=== PATIENT | female | born 1975 | race Caucasian/White ===

== ENCOUNTER 2017-04-01 15:49 | Emergency (ER) | payer SELFPAY ==
[~2017-04-01] VITALS: Ht 170.2 cm; Wt 64.0 kg
[2017-04-01 16:04] VITALS: BP 171/106; PULSE 98; RESP 17; TEMP 98.2; O2SAT 99
--- NOTE | 2017-04-01 16:49 | PD ---
HPI Chief Complaint: Oral / Dental Pain or Problem Time Seen by Provider: 16:45 Travel History International Travel<30 days: No Contact w/Intl Traveler<30days: No Traveled to known affect area: No History of Present Illness HPI 41-year-old female here with right upper dental pain and facial swelling 2 days. She denies fever or chills. She denies difficulty swallowing. Symptom severity is moderate. No aggravating or alleviating factors. PFSH Past Medical History Medical History: Denies Significant Hx Diminished Hearing: No Hypertension: Yes Influenza Vaccination: No ?: Not LMP: 1 WEEK AGO Social History Alcohol Use: No Tobacco Use: No Substance Use: No Allergies-Medications (Allergen,Severity, Reaction): Coded Allergies: Penicillins (Verified Allergy, Intermediate, HIVES, 04/01/17) Review of Systems Except as stated in HPI: all other systems reviewed are Neg General / Constitutional: No: Fever Physical Exam Narrative GENERAL: Alert well-appearing female. SKIN: Warm and dry. HEAD: Normocephalic. EYES: No scleral icterus. No injection or drainage. Mouth: Widespread dental decay. Right upper premolar decayed and screaming gum erythema. NECK: Supple, trachea midline. No lymphadenopathy. CARDIOVASCULAR: Regular rate and rhythm RESPIRATORY: Breath sounds equal bilaterally. No accessory muscle use. Data Data Last Documented VS Vital Signs Date Time Temp Pulse Resp B/P (MAP) Pulse Ox O2 Delivery O2 Flow Rate FiO2 04/01/17 16:04 98.2 98 17 171/106 (127) 99 MDM Medical Decision Making Medical Screen Exam Complete: Yes Emergency Medical Condition: Yes Differential Diagnosis Dental abscess, dental caries, periodontal disease. Narrative Course 41-year-old female with right upper dental pain and swelling 3 days. She has widespread dental decay and gum Erythema. Treated for dental infection. Diagnosis Primary Impression: Dental infection Referrals: Primary Care Physician Additional Instructions: Take the antibiotics as prescribed. Take [id number] Motrin 800 mg every 6 hours as needed for pain Scripts Clindamycin (Clindamycin) 300 Mg Cap 300 MG PO TID for Infection for 7 Days, CAP 0 Refills Prov: Britt Esqueda 04/01/17 Disposition: 01 DISCHARGE HOME Condition: Stable Britt Esqueda Apr 01, 2017 16:49
[2017-04-01] MEDS ORDERED: CLIN300C5 PO (16:55)
== END 2017-04-01 17:15 | disposition home or self-care (01) ==
LOC: PHEFT 15:49
DX: K04.7 Periapical abscess without sinus (principal); I10 Essential (primary) hypertension; Z88.0 Allergy status to penicillin
CPT/HCPCS: 99283

== ENCOUNTER 2017-07-27 13:37 | Emergency (ER) | payer SELFPAY ==
[~2017-07-27] VITALS: Ht 170.2 cm; Wt 68.2 kg
[~2017-07-27 13:37] MED LIST: CLIN300C5 PO
[2017-07-27 13:40] VITALS: BP 153/93; PULSE 100; RESP 16; TEMP 97.5; O2SAT 99
[2017-07-27] MEDS ORDERED: AZIT250T3 PO (14:07)
--- NOTE | 2017-07-27 14:08 | PD ---
HPI Chief Complaint: ENT Complaint Time Seen by Provider: 14:02 Travel History International Travel<30 days: No Contact w/Intl Traveler<30days: No Traveled to known affect area: No History of Present Illness HPI 41-year-old female here with left ear pain 3 days. Symptoms were preceded by URI like symptoms. History of ear infections in the past with similar symptoms. Denies drainage from the ear. No fever. Symptom severity is moderate. No aggravating or alleviating factors. PFSH Past Medical History Medical History: Denies Significant Hx Diminished Hearing: No Hypertension: Yes Immunizations Current: Yes Tetanus Vaccination: < 5 Years Influenza Vaccination: No ?: Not LMP: 2 weeks ago Past Surgical History Surgical History: No Previous Surgery Social History Alcohol Use: No Tobacco Use: No Substance Use: No Allergies-Medications (Allergen,Severity, Reaction): Coded Allergies: Penicillins (Verified Allergy, Intermediate, HIVES, 07/27/17) Reported Meds & Prescriptions Reported Meds & Active Scripts Active No Active Prescriptions or Reported Medications Review of Systems Except as stated in HPI: all other systems reviewed are Neg HENT: Positive: Earache Physical Exam Narrative GENERAL: Alert and well-appearing 41-year-old female SKIN: Warm and dry. HEAD: Normocephalic. EYES: No scleral icterus. No injection or drainage. Ear/nose/throat: Left TM erythema. No canal swelling discharge. No mastoid tenderness. No pharyngeal erythema. Uvula is midline. Airways patent. NECK: Supple, trachea midline. No lymphadenopathy. CARDIOVASCULAR: Regular rate and rhythm RESPIRATORY: Breath sounds equal bilaterally. No accessory muscle use. GASTROINTESTINAL:nondistended. MUSCULOSKELETAL: No cyanosis, or edema. Data Data Last Documented VS Vital Signs Date Time Temp Pulse Resp B/P (MAP) Pulse Ox O2 Delivery O2 Flow Rate FiO2 07/27/17 13:40 97.5 100 16 153/93 (113) 99 MDM Medical Decision Making Medical Screen Exam Complete: Yes Emergency Medical Condition: Yes Differential Diagnosis Otitis media, otitis externa, URI Narrative Course 41-year-old female with left otitis media. Nontoxic-appearing. Allergic to penicillin she will be treated with azithromycin. Diagnosis Primary Impression: Otitis media Qualified Codes: H66.90 - Otitis media, unspecified, unspecified ear Referrals: Primary Care Physician Patient Instructions: General Instructions Scripts Azithromycin (Azithromycin) 250 Mg Tab 250 MG PO DIRECTED for Infection, #6 TAB 0 Refills Take 2 tabs (500 mg) on day 1 then 1 tab daily x 4 days. Prov: Britt Esqueda 07/27/17 Disposition: 01 DISCHARGE HOME Condition: Stable Britt Esqueda Jul 27, 2017 14:07
== END 2017-07-27 14:15 | disposition home or self-care (01) ==
LOC: PHEFT 13:37
DX: H66.92 Otitis media, unspecified, left ear (principal); I10 Essential (primary) hypertension
CPT/HCPCS: 99283

== ENCOUNTER 2017-08-17 11:53 | Emergency (ER) | payer SELFPAY ==
[~2017-08-17] VITALS: Ht 170.2 cm; Wt 67.4 kg
[~2017-08-17 11:53] MED LIST changes: +AZIT250T3 PO; -CLIN300C5 PO
[2017-08-17 11:55] VITALS: BP 196/118; PULSE 119; RESP 16; TEMP 98.2; O2SAT 100
[2017-08-17] MEDS ORDERED: ORPHENADRINE INJ 60 MG/2 ML AMP IM ONE (12:15)
[2017-08-17] MEDS ORDERED: DEXAMETHASONE SOD PHOS 4 MG/ML VIAL IM ONE (12:15)
[2017-08-17] MEDS ORDERED: ACETAMINOPHEN/HYDROcodone 325 MG/5 MG TAB PO ONE (12:15)
--- NOTE | 2017-08-17 12:18 | PD ---
HPI Chief Complaint: Back/ Neck Pain or Injury Time Seen by Provider: 12:00 Travel History International Travel<30 days: No Contact w/Intl Traveler<30days: No Traveled to known affect area: No History of Present Illness HPI 41-year-old female with a history of low back pain presents emergency department for evaluation of low back pain that has been present since yesterday. 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 Patient denies any inciting events but states she decided to come in today because it is worse today and she is unable to perform her work duties. Patient points to the lower lumbar spine and lateral paraspinous muscles. Patient states that she has some radiation of pain down to her right thigh. She describes it as sharp, moderate in severity. Says his back pain is similar to her previous episodes of back pain. Says that she was diagnosed with a "pinched nerve" in 2006 after back injury. She occasionally has spontaneous onset of low back pain and again this is characteristic for her low back pain. She denies any fever, chills, loss of bowel or bladder function , saddle anesthesia, IV drug use. She denies chronic medical issues medication use. PFSH Past Medical History Hx Anticoagulant Therapy: No Cardiovascular Problems: Yes (HTN) Diabetes: No Diminished Hearing: No Hypertension: Yes Immunizations Current: Yes Tetanus Vaccination: < 5 Years Influenza Vaccination: No ?: Not Past Surgical History Surgical History: No Previous Surgery Social History Alcohol Use: No Tobacco Use: No Substance Use: No Allergies-Medications (Allergen,Severity, Reaction): Coded Allergies: Penicillins (Verified Allergy, Intermediate, HIVES, 08/17/17) Reported Meds & Prescriptions Reported Meds & Active Scripts Active Prednisone 10 Mg Tab 10 Mg PO DAILY 5 Days Robaxin (Methocarbamol) 500 Mg Tab 500 Mg PO TID 5 Days Review of Systems Except as stated in HPI: all other systems reviewed are Neg Physical Exam Narrative GENERAL: Well-nourished, well-developed patient. SKIN: Focused skin assessment warm/dry. HEAD: Normocephalic. EYES: No scleral icterus. No injection or drainage. NECK: Supple, trachea midline. CARDIOVASCULAR: Regular rate and rhythm without murmurs, gallops, or rubs. RESPIRATORY: Breath sounds equal bilaterally. No accessory muscle use. GASTROINTESTINAL: Abdomen soft, non-tender, nondistended. BACK: No CVA tenderness. No rash. No point tenderness on palpation of the spine. Mild tenderness palpation bilateral lower lumbar paraspinous muscles, extending into the gluteus. NEUROLOGICAL: Awake and alert. Motor and sensory grossly within normal limits upper and lower extremities. Five out of 5 muscle strength in lower extremities. Normal speech. Data Data Last Documented VS Vital Signs Date Time Temp Pulse Resp B/P (MAP) Pulse Ox O2 Delivery O2 Flow Rate FiO2 08/17/17 12:57 08/17/17 12:46 86 20 100 Room Air 08/17/17 11:55 98.2 Orders Orders Dexamethasone Inj (Decadron Inj) (08/17/17 12:15) Orphenadrine Inj (Norflex Inj) (08/17/17 12:15) Acetamin-Hydrocod 325-5 Mg ([place] 5-325 (08/17/17 12:15) Ed Discharge Order (08/17/17 12:32) [facility] Medical Decision Making Medical Screen Exam Complete: Yes Emergency Medical Condition: Yes Differential Diagnosis Lumbago with sciatica, lumbar strain, muscle spasms Narrative Course 41-year-old female with a history of low back pain presents emergency department for evaluation of low back pain that has been present since yesterday. 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 Patient denies any inciting events but states she decided to come in today because it is worse today and she is unable to perform her work duties. Patient points to the lower lumbar spine and lateral paraspinous muscles. Patient states that she has some radiation of pain down to her right thigh. She describes it as sharp, moderate in severity. Says his back pain is similar to her previous episodes of back pain. Says that she was diagnosed with a "pinched nerve" in 2006 after back injury. She occasionally has spontaneous onset of low back pain and again this is characteristic for her low back pain. She denies any fever, chills, loss of bowel or bladder function , saddle anesthesia, IV drug use. She denies chronic medical issues or medication use. Vital signs are stable. Her blood pressure and heart rate are elevated however , after reviewing previous notes, she has normal elevated HR around 100. Her BP is also chronically elevated. Her exam findings are reassuring. Mild tenderness palpation the lower lumbar paraspinous muscles. Neurovascular intact lower extremities. Hydrocodone, Norflex, dexamethasone administered in the emergency department. Patient will be discharged advised follow-up with her primary care physician. Consider follow-up with human resources services specialist for evaluation of his back pain. She should return to the emergency department for worsening or persistent symptoms. Diagnosis Primary Impression: Lumbago Qualified Codes: M54.41 - Lumbago with sciatica, right side Referrals: [facility] Orthopedist Additional Instructions: Perform light stretches of the lower back and legs, and alternate heat and ice packs. If you develop increased pain, weakness, fever, chills, or bowel or bladder issues, return to the ED for further treatment and evaluation. Follow up with your primary care physician in 2-3 days. Scripts Prednisone (Prednisone) 10 Mg Tab 10 MG PO DAILY for 5 Days, #5 TAB 0 Refills Prov: Naveed Wilde MD 08/17/17 Methocarbamol (Robaxin) 500 Mg Tab 500 MG PO TID for Muscle Spasm for 5 Days, TAB 0 Refills Prov: Naveed Wilde MD 08/17/17 Disposition: 01 DISCHARGE HOME Condition: Stable Corry Gomez August 17, 2017 12:18
[2017-08-17] MEDS ORDERED: PRED10 PO (12:31)
[2017-08-17] MEDS ORDERED: ROBA500T PO (12:31)
[2017-08-17 12:46] VITALS: BP 149/92; PULSE 86; RESP 20; O2SAT 100
== END 2017-08-17 12:59 | disposition home or self-care (01) ==
LOC: PHEFT 11:53
DX: M54.5 Low back pain (principal); I10 Essential (primary) hypertension; Z88.0 Allergy status to penicillin; Z79.899 Other long term (current) drug therapy
CPT/HCPCS: 96372; 99283; J1100; J2360

== ENCOUNTER 2017-08-23 19:52 | Emergency (ER) | payer SELFPAY ==
[~2017-08-23] VITALS: Ht 170.2 cm; Wt 66.4 kg
[~2017-08-23 19:52] MED LIST changes: -AZIT250T3 PO; +PRED10 PO; +ROBA500T PO
[2017-08-23 19:57] VITALS: BP 157/100; PULSE 104; RESP 18; TEMP 97.7; O2SAT 100
[2017-08-23 20:02] VITALS: BP 157/100; PULSE 104; RESP 20; TEMP 97.7; O2SAT 100
[2017-08-23] MEDS ORDERED: MORPHINE SULFATE 4 MG/ML INJ IM ONE (20:15)
[2017-08-23] MEDS ORDERED: KETOROLAC TROMETHAMINE 60 MG/2 ML (IM) VIAL IM ONE (20:15)
[2017-08-23] MEDS ORDERED: ONDANSETRON ODT 4 MG TAB PO ONE (20:15)
--- NOTE | 2017-08-23 20:16 | PD ---
HPI Chief Complaint: Pain: Acute or Chronic Time Seen by Provider: 20:01 Travel History International Travel<30 days: No Contact w/Intl Traveler<30days: No Traveled to known affect area: No History of Present Illness HPI 41-year-old female that presents to the ED for evaluation of right lower back pain. Patient has had this for about 1 week now. She was evaluated last week for evaluation of this. She states that she has a history of pinched nerves from an old injury in the early . She states that she has pain on and off and sometimes she gets flares like this. Patient does feel similar to her previous flares but has not improved. Patient was seen here about a week ago and states that her symptoms are not improved. She is concerned because is not getting better. Per patient pain is 10 out of 10. She was given a prescription for prednisone and Robaxin. She denies any injuries or trauma. She denies any heavy lifting. No IV drug abuse. No fevers chills or sweats. Urinary or bowel movement issues. No numbness, tingling, weakness. Pain stays mostly on the right side is sharp and radiates up the spine per patient. She has not seen anybody since being here. Allergies to penicillin. PFSH Past Medical History Hx Anticoagulant Therapy: No Cardiovascular Problems: Yes (HTN) Diabetes: No Diminished Hearing: No Hypertension: Yes Medical other: Yes (BACK INJURY FROM A FALL 2006) Immunizations Current: Yes Influenza Vaccination: No ?: Not LMP: 3-4 WEEKS AGO Social History Alcohol Use: No Tobacco Use: Yes (1PPD) Substance Use: No Allergies-Medications (Allergen,Severity, Reaction): Coded Allergies: Penicillins (Verified Allergy, Intermediate, HIVES, 08/23/17) Reported Meds & Prescriptions Reported Meds & Active Scripts Active Prednisone 10 Mg Tab 10 Mg PO DAILY 5 Days Robaxin (Methocarbamol) 500 Mg Tab 500 Mg PO TID 5 Days Review of Systems Except as stated in HPI: all other systems reviewed are Neg Physical Exam Narrative GENERAL: SKIN: Warm and dry. HEAD: Atraumatic. Normocephalic. EYES: Pupils equal and round. No scleral icterus. No injection or drainage. ENT: No nasal bleeding or discharge. Mucous membranes pink and moist. Tongue is midline. No uvula deviation. NECK: Trachea midline. No JVD. CARDIOVASCULAR: Regular rate and rhythm. no murmurs, s3, s4. RESPIRATORY: No accessory muscle use. Clear to auscultation. Breath sounds equal bilaterally. GASTROINTESTINAL: Abdomen soft, non-tender, nondistended. Hepatic and splenic margins not palpable. MUSCULOSKELETAL: Extremities without clubbing, cyanosis, or edema. No obvious deformities. Patient is a producible pain on the musculature on the right side of the back. No lumbar, thoracic, cervical spine tenderness to palpation. Patient has straight leg test negative bilaterally. Sensation intact bilaterally. Ambulatory. Gait normal. Full range of motion of the upper extremities. Strength equal bilaterally. NEUROLOGICAL: Awake and alert. No obvious cranial nerve deficits. Motor grossly within normal limits. Five out of 5 muscle strength in the arms and legs. Normal speech. PSYCHIATRIC: Appropriate mood and affect; insight and judgment normal. Data Data Last Documented VS Vital Signs Date Time Temp Pulse Resp B/P (MAP) Pulse Ox O2 Delivery O2 Flow Rate FiO2 08/23/17 20:02 97.7 104 20 157/100 (119) 100 Orders Orders Ketorolac Inj (Toradol Inj) (08/23/17 20:15) Morphine Inj (Morphine Inj) (08/23/17 20:15) Ondansetron Odt (Zofran Odt) (08/23/17 20:15) Ed Urine Pregnancytest Poc (08/23/17 20:06) Ct Lumb Spine W/O Contrast (08/23/17 ) Urinalysis - C+S If Indicated (08/23/17 20:11) [facility] Medical Decision Making Medical Screen Exam Complete: Yes Emergency Medical Condition: Yes Medical Record Reviewed: Yes Differential Diagnosis Neck pain versus lumbago versus muscle strain versus muscle spasm versus acute on chronic pain versus chronic pain Narrative Course 41-year-old female that presents to the ED for evaluation of right lower back pain. Patient was properly examined and was found to have signs and symptoms consistent with appears to be back pain. Appears to be muscular. I did review the patient's medical records and she was here about a week ago for same. She was given prescription for prednisone and Robaxin with minimal relief. She was given injections here with no relief per patient. This time I will give patient an IM injection of Toradol and morphine. She was given Zofran as well p.o. CT of the lumbar spine will be ordered for evaluation of acute disease. UA was ordered as well for any sign of infection causing the pain on the flank. Case will be signed out to my attending pending disposition and plan. Giovanni Sellers August 23, 2017 20:16
[2017-08-23 20:18] LABS: BILIRUBIN, URINE NEG (NEG); BLOOD, URINE NEG (NEG); GLUCOSE,URINE NEG (NEG); KETONE, URINE NEG (NEG); NITRITE,URINE NEG (NEG); URINE COLOR YELLOW (YELLW/STRAW); URINE LEUKOCYTE ESTERASE NEG (NEG)
[2017-08-23 20:22] LABS: AMORPHOUS SEDIMENT, URINE MOD; SQUAMOUS EPITHELIAL CELL URINE 0-5 /hpf (0-5)
[2017-08-23 20:51] VITALS: BP 161/90; PULSE 88; RESP 16; O2SAT 100
--- NOTE | 2017-08-23 21:20 | RADRPT ---
EXAM DATE/TIME: 08/23/2017 20:35 [facility] COMPARISON: No previous studies available for comparison. INDICATIONS : Back pain for 1 week. Fall injury 10+ years ago. RADIATION DOSE: 22.96 CTDIvol (mGy) MEDICAL HISTORY : Hypertension. SURGICAL HISTORY : None. ENCOUNTER: Initial ACUITY: 1 week PAIN SCALE: 10/10 LOCATION: [facility] TECHNIQUE: Volumetric scanning of the lumbar spine was performed. Multiplanar reconstructions in the sagittal, coronal and oblique axial planes were performed. Using automated exposure control and adjustment of the mA and/or kV according to patient size, radiation dose was kept as low as reasonably achievable t o obtain optimal diagnostic quality images. DICOM format image data is available electronically for review and comparison. FINDINGS: VERTEBRAE: Normal vertebral body height. ALIGNMENT: No evidence of subluxation. There is a minimal levocurvature of the lumbar spine. T12-L1: The thecal sac has a normal diameter. No evidence of disc bulge or protrusion. The neural foramina are patent bilaterally. L1-L2: The thecal sac has a normal diameter. No evidence of disc bulge or protrusion. The neural foramina are patent bilaterally. L2-L3: There is minimal disc bulging without significant stenosis. The neural foramina are patent bilaterall y. There is mild facet hypertrophy. L3-L4: There is mild disc bulging without significant stenosis. The neural foramina are patent bilaterally. There is mild facet hypertrophy. L4-L5: There is mild disc bulging without significant stenosis. The neural foramina are patent bilaterally. There is mild facet hypertrophy. L5-S1: The thecal sac has a normal diameter. No evidence of disc bulge or protrusion. The neural foramina are patent bilaterally. There is mild facet hypertrophy. CONCLUSION: Mild disc bulges at the L2-L3 through L4-L5 levels. There is also mid and lower lumbar facet hypertro phy. Caleb Singh MD on August 23, 2017 at 21:12 Board Certified Radiologist. This report was verified electronically.
--- NOTE | 2017-08-23 21:41 | PD ---
Physical Exam Date Seen by Provider: August 23, 2017 Time Seen by Provider: 21:37 Narrative GENERAL: SKIN: Warm and dry. HEAD: Normocephalic. EYES: No scleral icterus. No injection or drainage. NECK: Supple, trachea midline. No JVD or lymphadenopathy. MUSCULOSKELETAL: No cyanosis, or edema. BACK: Nontender without obvious deformity. No CVA tenderness. Data Data Last Documented VS Vital Signs Date Time Temp Pulse Resp B/P (MAP) Pulse Ox O2 Delivery O2 Flow Rate FiO2 08/23/17 20:51 88 16 161/90 (113) 100 Room Air 08/23/17 20:02 97.7 Orders Orders Ketorolac Inj (Toradol Inj) (08/23/17 20:15) Morphine Inj (Morphine Inj) (08/23/17 20:15) Ondansetron Odt (Zofran Odt) (08/23/17 20:15) Ed Urine Pregnancytest Poc (08/23/17 20:06) Ct Lumb Spine W/O Contrast (08/23/17 ) Urinalysis - C+S If Indicated (08/23/17 20:11) Ed Discharge Order (08/23/17 21:36) Labs Laboratory Tests Test 08/23/17 20:13 Urine Color YELLOW Urine Turbidity CLOUDY Urine pH 7.0 Urine Specific [place] 1.015 Urine Protein NEG mg/dL Urine Glucose (UA) NEG mg/dL Urine Ketones NEG mg/dL Urine Occult Blood NEG Urine Nitrite NEG Urine Bilirubin NEG Urine Urobilinogen 0.2 MG/DL Urine Leukocyte Esterase NEG Urine Squamous Epithelial Cells 0-5 /hpf Urine Amorphous Sediment MOD Microscopic Urinalysis Comment CULT NOT INDICATED MDM Medical Record Reviewed: Yes Supervised Visit with HADLEY: Yes Interpretation(s) Last Impressions Lumbar Spine CT 08/23/17 0000 Signed Impressions: Service Date/Time: Wednesday, August 23, 2017 20:35 - CONCLUSION: Mild disc bulges at the L2-L3 through L4-L5 levels. There is also mid and lower lumbar facet hypertrophy. Caleb Singh MD Vital Signs Date Time Temp Pulse Resp B/P (MAP) Pulse Ox O2 Delivery O2 Flow Rate FiO2 08/23/17 20:51 88 16 161/90 (113) 100 Room Air 08/23/17 20:02 97.7 104 20 157/100 (119) 100 08/23/17 19:57 97.7 104 18 157/100 (297) 100 Differential Diagnosis Sciatica, lumbar disc disease,HNP, cauda equina Narrative Course Accepted in transfer of care for follow-up of pending CT CT reveals diffuse small bulging disc disease; imaging study results are shared with patient; patient stable for outpatient management. Diagnosis Primary Impression: Lumbar disc disease with radiculopathy Referrals: Primary Care Physician call for appointment Patient Instructions: General Instructions, Narcotic given in the ED Departure Forms: Tests/Procedures, Work Release Special Instructions: no work x 2 days Additional Instruction: Take medication as prescribed Follow with primary care provider No work 2 days Return to the emergency department for any concerns or change in condition Med/Other Pt SpecificInfo: Prescription(s) given Scripts Methylprednisolone Dosepak (Medrol Dosepak) 4 Mg Dspk 4 MG PO DIRECTED, #1 DSPK 0 Refills Per Pharmacist direction Prov: Renee Johnson MD 08/23/17 Oxycodone-Acetaminophen (Percocet) 5-325 mg Tab 1 TAB PO Q6H Y for PAIN, #12 TAB 0 Refills Prov: Renee Johnson MD 08/23/17 Disposition: 01 DISCHARGE HOME Condition: Stable Renee Johnson MD August 23, 2017 21:41
[2017-08-23] MEDS ORDERED: PERC5TAB12 PO (21:55)
[2017-08-23] MEDS ORDERED: MEDR4PAK PO (21:55)
== END 2017-08-23 22:00 | disposition home or self-care (01) ==
LOC: PHEFT 19:52
DX: M54.16 Radiculopathy, lumbar region (principal); I10 Essential (primary) hypertension; F17.200 Nicotine dependence, unspecified, uncomplicated; Z88.0 Allergy status to penicillin
CPT/HCPCS: 72131; 81001; 84703; 96372; 99284; J1885; J2270